=== PATIENT | male | born 1955 | race Caucasian/White ===

== ENCOUNTER 2016-08-18 08:30 | Emergency (ER) | payer OTHER ==
[2016-08-18] MEDS ORDERED: HYDROmorphONE/DILAUDID 1 MG/ML SYR IVP ONE (09:04)
[2016-08-18] MEDS ORDERED: ONDANSETRON 4 MG/2 ML VIAL IVP ONE (09:04)
[2016-08-18] MEDS ORDERED: NS 1,000 ML IV ONE (09:04)
--- NOTE | 2016-08-18 09:07 | EDPHY ---
H & P Stated Complaint: Diarrhea, emesis, abd. pain, possibe GI bleed. Time Seen by Provider: 08/18/16 08:51 HPI/ROS: CHIEF COMPLAINT: Abdominal pain, vomiting, diarrhea HISTORY OF PRESENT ILLNESS: Patient is a 61-year-old man with a history of remote Neetu fundoplication who reports that he has had gradually increasing abdominal pain and bloating over the last 2 months. He contributes it to too much physical activity at work. He states that as this pain is increased he has followed up with his gastrologist to plans to do a upper and lower endoscopy on Thursday. He had primarily been constipated but then yesterday began having diarrhea. He has also vomited 4 times. No blood in his vomit or stool. No fever. No other abdominal surgeries. He is also slightly jaundice appearing. He denies heavy alcohol ingestion. REVIEW OF SYSTEMS: Constitutional: denies: chills, fever, recent illness, recent injury EENTM: denies: blurred vision, double vision, nose congestion Respiratory: denies: cough, shortness of breath Cardiac: denies: chest pain, irregular heart rate, lightheadedness, palpitations Gastrointestinal/Abdominal: See HPI Genitourinary: denies: dysuria, frequency, hematuria, pain Musculoskeletal: denies: joint pain, muscle pain Skin: See HPI Neurological: denies: headache, numbness, paresthesia, tingling, dizziness, weakness Hematologic/Lymphatic: denies: blood clots, easy bleeding, easy bruising Immunologic/allergic: denies: HIV/AIDS, transplant EXAM: GENERAL: Well-appearing, well-nourished and in no acute distress. HEAD: Atraumatic, normocephalic. EYES: Pupils equal round and reactive to light, extraocular movements intact, sclera anicteric, conjunctiva are normal. ENT: TMs normal, nares patent, oropharynx clear without exudates. Moist mucous membranes. NECK: Normal range of motion, supple without lymphadenopathy or JVD. LUNGS: Breath sounds clear to auscultation bilaterally and equal. No wheezes rales or rhonchi. HEART: Regular rate and rhythm without murmurs, rubs or gallops. ABDOMEN: Mild distention, epigastric pain BACK: No CVA tenderness, no spinal tenderness, step-offs or deformities EXTREMITIES: Normal range of motion, no pitting or edema. No clubbing or cyanosis. NEUROLOGICAL: Cranial nerves II through XII grossly intact. Normal speech, normal gait. 5/5 strength, normal movement in all extremities, normal sensation PSYCH: Normal mood, normal affect. SKIN: Warm, dry, normal turgor, no visible rashes or lesions. Source: Patient, Family Exam Limitations: No limitations - Personal History Current Tetanus/Diphtheria Vaccine: Unsure - Medical/Surgical History Hx Asthma: No Hx Chronic Respiratory Disease: No Hx Diabetes: No Hx Cardiac Disease: No Other PMH: GI - Family History Significant Family History: Hypertension - Social History Smoking Status: Never smoked Alcohol Use: Sober Drug Use: None Constitutional: Initial Vital Signs Temperature (C) 36.7 C 08/18/16 08:37 Respiratory Rate 112 H 08/18/16 08:37 Blood Pressure 124/77 H 08/18/16 08:37 O2 Sat (%) 96 08/18/16 08:37 O2 Delivery Mode Room Air Allergies/Adverse Reactions: No Known Allergies Allergy (Unverified 03/24/11 14:21) Home Medications: Medication Instructions Recorded "I Don'T Know Any Of The Names" 08/01/10 ? Antidepressant 03/24/11 ? Cholesterol Med 03/24/11 Albuterol Sulfate [Albuterol HFA 2 puffs IH Q4-6PRN PRN #1 inh 03/24/11 17g] Cephalexin [Keflex (*)] 500 mg PO QID #40 tab 03/23/13 SULFAMETHOXAZOLE/TRIMETHOPRIM 1 each PO BID #20 tab 03/23/13 [BACTRIM DS TABLET] Ondansetron Odt [Zofran Odt 4 mg 4 mg PO Q4 PRN #20 tab 08/18/16 (RX)] oxyCODONE/APAP 5/325 [Percocet 1 - 2 tab PO Q4-6PRN PRN #14 tab 08/18/16 5/325 (RX)] Medical Decision Making - Diagnostics EKG Interpretation: An EKG obtained and was read and documented in trace view. Please see trace view for full reading and report. Sinus tachycardia with right bundle branch block, no acute ischemic changes. ED Course/Re-evaluation: 11:00 a.m. the patient is feeling much better after medications. His abdominal exam is benign. Will perform an ultrasound to further rule out biliary disease. 12:00 p.m. we discussed the ultrasound results. The patient is relieved. His is relieved. They have an appointment follow up Dr. Bailey on Thursday for scopes. They declined further workup or testing at this time. We discussed monitoring his diet . He also told me that he began to have the diarrhea after he began taking amoxicillin for dental infection. Prescribe him nausea and pain medications. We discussed stool softeners. Differential Diagnosis: Partial list of the Differential diagnosis considered include but were not limited to; epigastric pain, biliary disease, pancreatic disease, peptic ulcer disease, constipation and although unlikely based on the history and physical exam, I also considered obstruction, ischemia, volvulus, acute coronary disease. I discussed these differential diagnoses and the plan with the patient as well as the usual and expected course. The patient understands that the diagnosis is provisional and that in medicine we are not always correct and that further workup is often warranted. Usual and customary warnings were given. All of the patient's questions were answered. The patient was instructed to return to the emergency department should the symptoms at all worsen or return, otherwise to followup with the physician as we discussed. - Data Points Laboratory Results: Laboratory Results 08/18/16 08:48 08/18/16 08:48 Medications Given: Discontinued Medications Hydromorphone HCl (Dilaudid) 1 mg IVP EDNOW ONE Stop: 08/18/16 09:05 Last Admin: 08/18/16 09:15 Dose: 1 mg Sodium Chloride (Ns) 1,000 mls @ 0 mls/hr IV ONCE ONE PRN Reason: Wide Open Stop: 08/18/16 09:05 Last Admin: 08/18/16 09:07 Dose: 1,000 mls Ondansetron HCl (Zofran) 4 mg IVP EDNOW ONE Stop: 08/18/16 09:05 Last Admin: 08/18/16 09:15 Dose: 4 mg Departure - Departure Disposition: Home, Routine, Self-Care Clinical Impression: Epigastric abdominal pain Gallstone Qualifiers: Cholecystitis presence: without cholecystitis Biliary obstruction: without biliary obstruction Qualifier Code: (K80.20) Calculus of gallbladder without cholecystitis without obstruction Condition: Fair Instructions: Epigastric Pain (ED), Gallstones (ED) Referrals: Abram Lerma MD [Primary Care Provider] - As per Instructions Clifford Bailey MD [Medical Doctor] - As per Instructions Prescriptions: oxyCODONE/APAP 5/325 [Percocet 5/325 (RX)] 1 - 2 tab PO Q4-6PRN PRN #14 tab PRN Reason: Pain Ondansetron Odt [Zofran Odt 4 mg (RX)] 4 mg PO Q4 PRN #20 tab PRN Reason: Nausea & Vomiting
[2016-08-18 09:18] LABS: % IMMATURE GRANULYOCYTES 0.4 % (0.0-1.1); ABSOLUTE IMMATURE GRANULOCYTES 0.04 10^3/uL (0.00-0.10); ADD DIFF? NO; ADD MORPH? NO; ADD SCAN? NO; ATYPICAL LYMPHOCYTE FLAG 0 (0-99); FRAGMENT RBC FLAG 0 (0-99); HEMATOCRIT 49.3 % (40.0-51.0); HEMOGLOBIN 17.3 g/dL (13.7-17.5); LEFT SHIFT FLG 0 (0-99); LIPEMIA HEMOLYSIS FLAG 90 (0-99); MEAN CELL HEMOGLOBIN 30.5 pg (27.9-34.1); MEAN CELL HEMOGLOBIN CONCENTR. 35.1 g/dL (32.4-36.7); MEAN CELL VOLUME 86.9 fL (81.5-99.8); MEAN PLATELET VOLUME 10.3 fL (8.7-11.7); PLATELET CLUMPS FLAG 0 (0-99); PLATELET COUNT 217 10^3/uL (150-400); RED BLOOD CELL COUNT 5.67 10^6/uL (4.40-6.38); RED CELL DISTRIBUTION WIDTH 12.8 % (11.5-15.2)
[2016-08-18 09:20] LABS: ALANINE AMINOTRANSFERASE 37 IU/L (21-72); ALBUMIN 4.7 g/dL (3.5-5.0); ALKALINE PHOSPHATASE 89 IU/L (38-126); ANION GAP 12 mEq/L (8-16); ASPARTATE AMINOTRANSFERASE 21 IU/L (17-59); BILIRUBIN-CONJUGATED 0.5 mg/dL (0.0-0.5); BILIRUBIN-UNCONJUGATED 0.5 mg/dL (0.0-1.1); CALCIUM 8.7 mg/dL (8.5-10.4); CARBON DIOXIDE 21 mEq/l (22-31); CHLORIDE 106 mEq/L (97-110); GLOMERULAR FILTRATION RATE > 60; GLUCOSE 163 mg/dL (70-100); POTASSIUM 4.3 mEq/L (3.5-5.2); SODIUM 139 mEq/L (134-144); TOTAL PROTEIN 7.1 g/dL (6.3-8.2)
[2016-08-18 09:28] LABS: INR 0.97 (0.83-1.16); PROTIME(PATIENT) 12.8 SEC (12.0-15.0)
[2016-08-18] MEDS ORDERED: IOPAMIDOL (ISOVUE-300) 100 ML BTL IV ONE (09:52)
[2016-08-18 10:05] LABS: COLOR YELLOW; LEUKOCYTE ESTERASE,URINE NEGATIVE (NEGATIVE); NITRITE,URINE NEGATIVE (NEGATIVE)
[2016-08-18 10:43] VITALS: RESP 16; O2SAT 93
--- NOTE | 2016-08-18 12:12 | CPEKG ---
Heart Rate: 103 RR Interval: 583 P-R Interval: 180 QRSD Interval: 126 QT Interval: 364 QTC Interval: 477 P [place]: 52 QRS [place]: 46 T Wave [place]: -10 EKG Severity - ABNORMAL ECG - EKG Impression: SINUS TACHYCARDIA EKG Impression: RIGHT BUNDLE BRANCH BLOCK Electronically Signed By: Hussein Schmidt 18-Aug-2016 12:17:15
[2016-08-18 12:17] VITALS: BP 115/76; PULSE 103; TEMP 98.6
--- NOTE | 2016-08-18 12:31 | CT ---
CT Scan of the Abdomen and Pelvis (With Contrast) August 18, 2016 Indication: Abdominal pain. Technique: No oral or rectal contrast. 90 mL of Isovue-300 were given intravenously by machine power injection. Multidetector helical CT imaging was performed from the diaphragm to the symphysis pubis . Dose reduction techniques were utilized. Comparison: None. Findings: Mild gaseous distention of the colon down to the level of the rectum with minimal increased dependent fluid in the right and left hemicolon suggestive of a dysmotile process. The appendix is n ormal. Small bowel is normal caliber. Patient appears to have undergone a Neetu fundoplication. The wrap resides superior to the diaphragmatic hiatus in the posterior mediastinum. No pneumoperitoneum, free fluid, abscess, lymphadenopathy, or mass. The liver, spleen, pancreas, gallbladder, adrenal glands, and kidneys are normal. No biliary dilation or evidence of calcified gallstone. No hydronephrosis or ureteral calculi. The urinary bladder is no rmal. The lung bases are clear. No bone lesions. Mild degenerative disk disease at the thoracolumbar juncti on. Impression: 1. Mild adynamic ileus and features suggestive of gastroenteritis. 2. No small bowel obstruction or localized intraabdominal inflammatory process. 3. No free fluid or abscess. Comment: Results were called to Dr. Schmidt.
--- NOTE | 2016-08-18 12:38 | US ---
Ultrasound Abdomen Limited History: Right upper quadrant pain. Evaluate for cholelithiasis. Comparison: CT also performed today. Findings: Liver measures 16 cm. No evidence for focal liver lesion. No evidence for intrahepatic bili ruby ductal dictation. Gallstone is seen dependent in the gallbladder and mobile measuring 2.8 cm. The re are a couple small gallbladder wall polyps versus small adherent stones measuring 2 mm. Wall is mi ldly thickened at 3 mm. No evidence for hyperemia or pericholecystic fluid. Common bile duct measures 4 mm. Right kidney measures 11.8 cm in length and demonstrates no evidence for hydronephrosis. There is a probable small cyst in the midpole measuring 9 mm. No significant free fluid in the right upper quadrant. Abdominal aorta is normal in diameter. Pancreas is not well visualized secondary to overly ing bowel gas. Impression: Cholelithiasis. The gallbladder wall is borderline enlarged but no evidence for hyperemia or pericholecystic fluid. There are also a couple small gallbladder wall polyps or small adherent st ones. Results discussed with Dr. Hussein Schmidt.
== END 2016-08-18 12:23 | disposition home or self-care (01) ==
DX: K80.20 Calculus of gallbladder without cholecystitis without obstruction (principal)
CPT/HCPCS: 96374; J1170; J2405; Q9967

== ENCOUNTER → 2016-08-27 | Outpatient (CLI) | payer OTHER ==
--- NOTE | 2016-08-27 12:17 | NM ---
Nuclear Medicine Hepatobiliary Scan with Gallbladder Ejection Fraction Clinical History: 61-year-old male with a history of right upper quadrant pain, noted to have choleli thiasis. He also has a history of gastritis and GERD. Rule out cholecystitis or gallbladder dyskinesi a. Radiopharmaceutical: 5.6 mCi of IV technetium 99m Choletec. Medical Pharmaceutical: 50.7 grams of fat in oral Nepro. Technique: At the uncomplicated intravenous administration of the radiopharmaceutical, anterior imag ing of the right upper quadrant of the abdomen was performed before and after the consumption of the oral fat. A time-activity curve was plotted, and a gallbladder ejection fraction was calculated. Comparison Study: Right upper quadrant abdominal sonography, dated 08/18/16. Findings: Hepatobiliary Scan: There is prompt homogeneous uptake by the liver. The gallbladder begins to fill by 20 minutes, and small bowel begins to fill by 11 minutes. On several of the initial images acquire d, there appears to be some reflux of radiotracer into the left upper quadrant, suggestive of biliary -gastric reflux, which may result in a mild gastritis. There is no acute or chronic cholecystitis, or evidence of cystic or common bile duct obstruction. Gallbladder Ejection Fraction: The time activity curve is flat, and an EF is calculated at only 10%, consistent with dyskinesia (normal range should be above 35%). Impression: 1. There is no evidence of cholecystitis. 2. Biliary-gastric reflux. 3. Gallbladder dyskinesia, with an EF of only 10%.
== END ==
LOC: FIMAGING 08:44
PROVIDERS: ATTEND Internal Medicine Gastroenterology
DX: K21.9 Gastro-esophageal reflux disease without esophagitis (principal); K82.8 Other specified diseases of gallbladder
CPT/HCPCS: 78227; A9537

== ENCOUNTER 2016-09-04 08:57 | Day surgery (SDC) | payer OTHER ==
--- NOTE | 2016-09-03 14:53 | GHP ---
[f rep st] HISTORY AND PHYSICAL DATE OF ADMISSION: For upcoming surgery, 09/04/2016 HISTORY OF PRESENT ILLNESS: The patient is a 61-year-old male who comes to our office for the first time complaining of 2-3 days of constant right upper quadrant, right back pain accompanied by bloating, decreased appetite, small bowel movements, some left upper quadrant pain. The patient went to the emergency room earlier this year and had an ultrasound which demonstrated cholelithiasis. He followed up with Dr. Bailey, his partner manager, and had a HIDA scan which demonstrated ejection fraction of less than 10%. PAST SURGICAL HISTORY: Neetu fundoplication, right shoulder arthroscopy. MEDICATIONS: Terazosin, Paxil. ALLERGIES: No known drug allergies. SOCIAL HISTORY: Nonsmoker. . Lives in [place]. Works in heating and air conditioning. REVIEW OF SYSTEMS: Negative 10-point review of systems. PHYSICAL EXAMINATION: GENERAL: Patient is a pleasant male, who appears mildly uncomfortable in the office, non-jaundiced. HEAD AND NECK: Normocephalic, atraumatic. CHEST: CTA bilaterally. HEART: Regular rhythm and rate. ABDOMEN : Scar is consistent with laparoscopic Neetu fundoplication, right upper quadrant pain to palpation/positive Hernandez sign, bowel sounds upon auscultation , minimal distention, negative rebound. EXTREMITIES: No lower extremity edema. Normal dorsalis pedis pulses to palpation. RADIOLOGY: Ultrasound and HIDA scan reports were reviewed as well as ultrasound images. LABORATORY STUDIES: From early August demonstrate grossly normal liver function tests. IMPRESSION: A 61-year-old male with cholelithiasis concerning for cholecystitis. RECOMMENDATION: Laparoscopic cholecystectomy was discussed with the patient in detail by Dr. Barreto. Risks discussed include bleeding, common bile duct injury , infection, the possibility of conversion to open procedure. The patient elects to proceed with scheduling surgery for tomorrow 09/04/2016. He will have laboratory studies upon admission to further evaluate whether he will need intraoperative cholangiogram. /[id number]/MODL MTDD
[~2016-09-04 08:57] MED LIST: BUPIVACAINE 0.5% 30 ML SDV ONE; SKIN ADHESIVE (DERMABOND) 1 EACH TP ONE; ceFAZolin 2 GM/DEXTROSE 100 ML IV ONE
[2016-09-04] MEDS ORDERED: CEFAZOLIN 2 GM/DEXTROSE/100 ML BAG IV ONE (09:26)
[2016-09-04 10:10] LABS: % IMMATURE GRANULYOCYTES 0.4 % (0.0-1.1); ABSOLUTE IMMATURE GRANULOCYTES 0.02 10^3/uL (0.00-0.10); ADD DIFF? NO; ADD MORPH? NO; ADD SCAN? NO; ATYPICAL LYMPHOCYTE FLAG 20 (0-99); FRAGMENT RBC FLAG 0 (0-99); HEMATOCRIT 46.8 % (40.0-51.0); HEMOGLOBIN 16.2 g/dL (13.7-17.5); LEFT SHIFT FLG 0 (0-99); LIPEMIA HEMOLYSIS FLAG 90 (0-99); MEAN CELL HEMOGLOBIN 30.7 pg (27.9-34.1); MEAN CELL HEMOGLOBIN CONCENTR. 34.6 g/dL (32.4-36.7); MEAN CELL VOLUME 88.6 fL (81.5-99.8); MEAN PLATELET VOLUME 10.4 fL (8.7-11.7); PLATELET CLUMPS FLAG 0 (0-99); PLATELET COUNT 209 10^3/uL (150-400); RED BLOOD CELL COUNT 5.28 10^6/uL (4.40-6.38); RED CELL DISTRIBUTION WIDTH 12.5 % (11.5-15.2)
[2016-09-04 10:33] LABS: ALBUMIN 4.5 g/dL (3.5-5.0); BILIRUBIN-CONJUGATED 0.3 mg/dL (0.0-0.5); BILIRUBIN-UNCONJUGATED 0.7 mg/dL (0.0-1.1); TOTAL PROTEIN 6.9 g/dL (6.3-8.2)
[2016-09-04] MEDS ORDERED: LR 1,000 ML IV ONE (10:34)
[2016-09-04] MEDS ORDERED: IOTHALAMATE MEG (CONRAY) 50 ML VIAL IV ONE (13:25)
[2016-09-04] MEDS ORDERED: fentaNYL 100 MCG/2 ML INJ ONE ×2 (13:37→15:24)
[2016-09-04] MEDS ORDERED: PROPOFOL/EMULSION 500 MG/50 ML BOTTLE IV ONE (13:37)
[2016-09-04] MEDS ORDERED: MIDAZOLAM 2 MG/2 ML VIAL ONE (13:38)
[2016-09-04] MEDS ORDERED: NEOSTIGMINE METHYLSULFATE 5 MG/5 ML SYR ONE (14:16)
[2016-09-04] MEDS ORDERED: ONDANSETRON 4 MG/2 ML VIAL ONE (14:16)
[2016-09-04] MEDS ORDERED: DEXAMETHASONE 4 MG/ML VIAL ONE (14:16)
[2016-09-04] MEDS ORDERED: KETOROLAC 30 MG/1 ML SDV ONE (14:16)
[2016-09-04] MEDS ORDERED: METOCLOPRAMIDE 10 MG/2 ML VIAL ONE (14:16)
[2016-09-04] MEDS ORDERED: GLYCOPYRROLATE 0.2 MG/1 ML VIAL ONE ×3 (14:16→14:26)
[2016-09-04] MEDS ORDERED: ROCURONIUM 50 MG/5 ML VIAL ONE (14:16)
--- NOTE | 2016-09-04 15:52 | GOP ---
[f rep st] OPERATIVE REPORT DATE OF OPERATION: 09/04/2016 SURGEON: Edelmira Barreto MD MANAGER MEDICAL WRITING: Dr. Jewel Naranjo PA-C. ANESTHESIA: General. ANESTHESIOLOGIST: Dr. Urvashi Ryan. PREOPERATIVE DIAGNOSIS: Biliary dyskinesia. POSTOPERATIVE DIAGNOSIS: Biliary dyskinesia. PROCEDURE PERFORMED: Laparoscopic cholecystectomy. FINDINGS: Enlarged gallbladder. SPECIMENS: Gallbladder. ESTIMATED BLOOD LOSS: 30 cc. INDICATIONS: Juan Peterson is a 61-year-old with known biliary dyskinesia. His abdominal pain has been increasing. DESCRIPTION OF PROCEDURE: Juan was brought into the operating room, placed supine on the table, and general anesthesia was administered. His abdomen was prepped and draped in the usual sterile fashion . I infiltrated the area with 0.5% Marcaine prior to making the incision. I made an incision by his umbilicus. I inserted the Veress needle. It passed the hanging drop test. His abdomen insufflated easily to a pressure of 15 mmHg. I placed a 5 mm trocar with a camera at this site. There were no adhesions from his previous surgery. Under direct vision, I placed a 10 mm subxiphoid trocar and 2 5 mm trocars along the right costal margin. I lifted the gallbladder cephalad and laterally to expose the triangle of Calot. I skeletonized the cystic artery and cystic duct so that they were the only 2 structures directly entering the gallbladder. The common bile duct was visualized and protected. The cystic artery and cystic duct were singly clipped toward the gallbladder and doubly clipped dista lly. They were transected with scissors. The gallbladder was removed from the gallbladder fossa wit h electrocautery. I placed it in an EndoCatch bag and removed it via the subxiphoid trocar. Hemosta sis was achieved on the liver bed with electrocautery. The ports were removed under direct vision, a nd the abdomen allowed to desufflate. The fascia at the 10 mm trocar site was closed with 0 Vicryl. There was bleeding from the most inferior port. I opened this a little further, and hemostasis was achieved with electrocautery. All the skin was closed with 4-0 Monocryl. Dermabond applied. He was awakened in the operating room, extubated, transferred to PACU in stable condition. /[id number]/MODL
[2016-09-04] MEDS ORDERED: HYDROCODONE/APAP 5/325 TAB ONE (16:50)
== END 2016-09-04 17:40 | disposition home or self-care (01) ==
LOC: FSGY 08:57 → UNDOADMOB 08:57 → F3E 08:57 → EDSTATUS 11:30 → F3E 15:11 → FSGY 17:40
PROVIDERS: ATTEND Surgery
PROC: 0FT44ZZ Resection of Gallbladder, Percutaneous Endoscopic Approach (ICD-10-PCS; principal; 2016-09-04 11:30)
DX: K82.8 Other specified diseases of gallbladder (principal); F32.9 Major depressive disorder, single episode, unspecified; N40.0 Benign prostatic hyperplasia without lower urinary tract symptoms
CPT/HCPCS: J0690; J1100; J1885; J2250; J2405; J2704; J2710; J2765; J3010; Q9961

== ENCOUNTER → 2017-03-02 | Outpatient (CLI) | payer OTHER | LOC: BMCIMAGING 11:11 | PROVIDERS: ATTEND Internal Medicine | DX: M19.072 Primary osteoarthritis, left ankle and foot (principal); M77.32 Calcaneal spur, left foot ==

== ENCOUNTER → 2017-03-25 | Outpatient (CLI) | payer OTHER | LOC: CIMAGING 16:26 | PROVIDERS: ATTEND Radiology Diagnostic Radiology | DX: Z01.818 Encounter for other preprocedural examination (principal) | CPT/HCPCS: 70200-PO ==

== ENCOUNTER → 2017-05-12 | Outpatient (CLI) | payer OTHER | LOC: BMCIMAGING 11:12 | PROVIDERS: ATTEND Podiatrist Foot & Ankle Surgery | DX: Z09 Encounter for follow-up examination after completed treatment for conditions other than malignant neoplasm (principal); Z98.890 Other specified postprocedural states ==

== ENCOUNTER → 2017-05-26 | Outpatient (CLI) | payer OTHER | LOC: BMCIMAGING 11:25 | PROVIDERS: ATTEND Podiatrist Foot & Ankle Surgery | DX: Z09 Encounter for follow-up examination after completed treatment for conditions other than malignant neoplasm (principal); Z98.890 Other specified postprocedural states ==

== ENCOUNTER → 2017-06-23 | Outpatient (CLI) | payer OTHER | LOC: BMCIMAGING 15:09 | PROVIDERS: ATTEND Podiatrist Foot & Ankle Surgery | DX: Z09 Encounter for follow-up examination after completed treatment for conditions other than malignant neoplasm (principal); Z98.890 Other specified postprocedural states ==

== ENCOUNTER 2017-08-28 13:28 | Emergency (ER) | payer OTHER ==
[2017-08-28 13:39] VITALS: RESP 16; O2SAT 97
--- NOTE | 2017-08-28 14:30 | EDPHY ---
H & P Smoking Status: Never smoked Time Seen by Provider: 08/28/17 14:17 HPI/ROS: CHIEF COMPLAINT: Lower extremity edema HISTORY OF PRESENT ILLNESS: 62-year-old male with no coagulopathic disorder sent to the emergency department from [facility] worker's compensation for evaluation of possible DVT/ultrasound study. He reports that a few days ago while at worked he was walking on uneven surface, twisted his left knee, the next day noticed ecchymosis to the lateral knee as well as tenderness. He had negative x-rays at urgent care, was sent to the emergency department for evaluation possible DVT as he has asymmetrical edema of the left lower extremity. No direct direct trauma or fall. No paresthesia. No sensory or motor deficits. He is able to bear weight PRIMARY CARE PROVIDER: Worker's compensation REVIEW OF SYSTEMS: A ten point review of systems was performed and is negative with the exception of the items mentioned in the HPI PHYSICAL EXAM (Prior to examination, patient consented to physical exam, hands were washed and my usual and customary physical exam procedures followed) 1) GENERAL: Well-developed, well-nourished, alert and oriented. Appears to be in no acute distress. 2) HEAD: Normocephalic 3) HEENT: Pupils equal, round, reactive to light bilaterally. 4) LUNGS: Breathing comfortably. 5) MUSCULOSKELETAL: Exam of the [lower extremity shows ecchymosis to the proximal tibial region as well as tenderness. Soft compartments. Tender to palpation lateral knee. Limited range of motion of the left knee secondary to pain. No malrotation. 6) SKIN: Intact. Ecchymosis noted. 7) VASCULAR: DP,PT pulses and cap refill present and brisk distally DIFFERENTIAL DIAGNOSIS: in no particular order including but not limited to fracture, sprain, compartment syndrome, septic arthritis, DVT (Faraz Noe) Constitutional: Initial Vital Signs Temperature (C) 37.0 C 08/28/17 13:35 Heart Rate 77 08/28/17 13:35 Respiratory Rate 16 08/28/17 13:35 Blood Pressure 131/93 H 08/28/17 13:35 O2 Sat (%) 97 08/28/17 13:35 O2 Delivery Mode Room Air Allergies/Adverse Reactions: No Known Allergies Allergy (Unverified 03/24/11 14:21) Home Medications: Medication Instructions Recorded Imitrex 50 MG (*) 100 mg PO 09/04/16 Paxil PO DAILY 09/04/16 Terazosin HCl PO DAILY 09/04/16 MDM/Departure - [facility] Imaging Results: Imaging Impressions Extremity Venous Study 08/28/17 14:27 Impression: No evidence of deep vein thrombosis. Findings discussed with Faraz Noe 08/28/2017 at 15:43. Images reviewed myself (Faraz Noe) Procedures: Procedure: Splint A knee immobilizer splint was applied by ER sample prep technician. After application of the splint I returned and re-examined the patient. The splint was adequately immobilizing the joint and distal to the splint the patient's circulation and sensation were intact. Patient shows no signs of compartment syndrome. Was given orthopedic precautions. Procedure: Crutches indications for crutch use discussed with patient. Patient fitted for crutches by ER staff. Observed ambulating with crutches. I think the patient has the capacity to safely use crutches. Usual and customary crutch walking precautions provided (Faraz Noe) ED Course/Re-evaluation: 3:55 p.m.: Patient was re-evaluated with serial examinations. Discussed his negative ultrasound results. His in place knee immobilizer, crutches, recommend follow up at his work comp provider. He has been informed that he may necessitate more advanced imaging, I do not think that this is emergently indicated. Compartments are soft. Doubt compartment syndrome. Doubt infectious etiology. Usual and customary orthopedic precautions instructions provided. Care of patient under supervision of secondary supervising physician Dr Mason. (Faraz Noe) I did not see this patient while he was in the emergency department. However his care was discussed with PA while the patient was in the department. I agree with treatment plan and management (Rm Mason) - Depart Disposition: Home, Routine, Self-Care Clinical Impression: Left lateral knee pain Condition: Good Instructions: Knee Pain (ED) Additional Instructions: Return to the ER immediately if you experience discoloration, have worsening pain, numbness, tingling, or any other symptoms that concern you. If you received x-rays in the emergency department today, be advised, that ligamentous , tendon, muscular, and other non-bony injury cannot be fully ruled out. Try to keep your affected extremity elevated above the level of your chest, and keep cold packs on the affected area, for the next 48 hours. Your ultrasound was negative for blood clots, Stand Alone Forms: Work Comp Follow Up Referrals: Omega Bell MD [Medical Doctor] - 2-3 days, call for appt.
[2017-08-28 16:19] VITALS: BP 131/67; PULSE 74; TEMP 98.1
== END 2017-08-28 16:19 | disposition home or self-care (01) ==
DX: M25.562 Pain in left knee (principal)

== ENCOUNTER → 2017-12-23 | Outpatient (CLI) | payer OTHER | LOC: BMCIMAGING 11:00 | PROVIDERS: ATTEND Orthopaedic Surgery Hand Surgery | DX: M25.841 Other specified joint disorders, right hand (principal); M25.842 Other specified joint disorders, left hand ==